=== PATIENT | female | born 1935 | race Caucasian/White ===

== ENCOUNTER 2018-08-17 11:50 | Inpatient (IN) | payer OTHER ==
[~2018-08-17] VITALS: Ht 165.1 cm; Wt 74.8 kg
[2018-08-17 12:04] VITALS: Ht 165.1 cm; Wt 74.8 kg
--- NOTE | 2018-08-17 12:29 | NUR ---
PT C/O SWELLING TO BILAT LEGS. PT HAD LAC TO RT LOWER LEG THAT WAS TREATED AND SUTURED ABOUT 1WK AGO. PT REPORTS RECENTLY HITTING LEFT LOWER LEG AND STS SWELLING WORSENED SINCE THEN. REDNESS NOTED TO LLL. SUTURES NOTED TO RT LOWER LEG. NO S/S OF INFECTION NOTED. PT DENIES DISCHARGE FROM SUTURE SITE. WEAPING PRESENT TO LEFT LEG. SKIN HOT TO TOUCH AND TENDER. ECCHYMOSIS NOTED TO RT EYE WHICH PT STS SHE FELL FRIDAY. STS SHE WAS TRYING TO PLACE TRASH CAN INSIDE GARAGE AND MADE HER LOSE HER BALANCE. PT A/OX4. SPEAKING IN CLEAR FULL SENTENCES. PT SITTING IN UPRIGHT POSITION. DR. ORELLANA AT BEDSIDE FOR MSE. PT DENIES LOC. COMFORT MEASURES IMPLEMENTED. CALL LIGHT W/IN REACH. WILL CTM
--- NOTE | 2018-08-17 13:30 | NUR ---
ULTRASOUND IN PROGRESS
[2018-08-17 13:54] LABS: PLATELET COUNT 288 x10^3mcL (130-400)
[2018-08-17 13:55] LABS: CALCIUM 8.8 mg/dL (8.5-10.1); CARBON DIOXIDE 26.3 mmol/L (21-32); CHLORIDE SERUM 104 mmol/L (98-107); CREATININE SERUM 1.1 mg/dL (0.6-1.0); GLUCOSE SERUM 124 mg/dL (74-106); POTASSIUM SERUM 4.9 mmol/L (3.5-5.1); SODIUM SERUM 138 mmol/L (136-145)
[2018-08-17 13:56] LABS: BASOPHIL % 0 % (0-2)
[2018-08-17 14:00] LABS: AST/SGOT 21 U/L (15-37)
[2018-08-17 14:16] LABS: ALKALINE PHOSPHATASE 62 U/L (46-116); ALT/SGPT 22 U/L (14-59); BILIRUBIN TOTAL 0.5 mg/dL (0.20-1.00); TOTAL PROTEIN, SERUM 7.2 g/dL (6.4-8.2)
[2018-08-17 14:21] LABS: ALBUMIN 3.3 g/dL (3.4-5.0)
--- NOTE | 2018-08-17 14:27 | NUR ---
TO BATHROOM BY WHEELCHAIR ,URINE SPECIEMEN COLLECTED AND SENT TO LAB
[2018-08-17 14:46] LABS: microscopic required? YES; urine erythrocyte NEGATIVE (NEGATIVE)
--- NOTE | 2018-08-17 14:50 | NUR ---
PT RECLINED ON GURSOPHIA IN POSITION OF COMFORT. RESPS E/U. NO S/S OF DISTRESS NOTED.
--- NOTE | 2018-08-17 15:37 | NUR ---
MEDICATED ORDERED. PLEASE SEE EMR.
[2018-08-17] MEDS ORDERED: ALENDRONATE SOD70 M2 (16:06)
[2018-08-17] MEDS ORDERED: LOSARTAN POTASS25 M1 (16:06)
[2018-08-17] MEDS ORDERED: XARELTO STARTER20 MG (16:06)
[2018-08-17] MEDS ORDERED: METHOTREXATE2.5 M2 (16:06)
[2018-08-17] MEDS ORDERED: ATENOLOL25 MG (16:06)
[2018-08-17] MEDS ORDERED: PREDNISONE1 MG (16:07)
--- NOTE | 2018-08-17 16:15 | NUR ---
REPORT GIVEN TO JARETT DICK TO ASSUME CARE OF PT.
[2018-08-17 16:22] LABS: CHOLESTEROL/HDL RATIO 2.5
[2018-08-17 16:54] VITALS: BP 131/34
--- NOTE | 2018-08-17 17:09 | NUR ---
RECEIVED PT FROM ER. PT ADMIT FOR LEFT LEG CELLULITIS, RIGHT LEG DVT. PT IS A/O X4, VERBAL RESPONSIVE, ABLE OT TELL WHAT SHE NEEDS. 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 LUNG SOUND CLEAR BILATERAL, NO COUGH, NO SOB, PT DENY ANY CHEST PAIN OR DISCOMFORT, BOWEL SOUND PRESENT ALL 4 QUADRANTS, NO DISTENTION, NO TENDER. PEDAL PULSE PRESENT AT LEFT LEG WEAK, BUT ABSENT AT RIGHT LEG. +3 RLE, +4 LLE, THERE IS SUTURE AT RLE IN PLACE. LLE ERYTHEMA, RIGHT EYE AND RIGHT SHOULDER ECCHYMOSIS, IV AT LEFT FA, NO LEAKING, NO INFILTRATION. ALL ADLS ASSIST, ALL NEED MET, CALL LIGHT IN REACH, WILL CONTINUE TO MONITOR.
[2018-08-17] MEDS ORDERED: XARELTO10 M1 PO (17:30)
[2018-08-17] MEDS ORDERED: MAGNESIUM OXID400 MG PO (17:31)
[2018-08-17] MEDS ORDERED: CALCIUM 600600 M3 PO (17:32)
[2018-08-17] MEDS ORDERED: LEU5 PO (17:33)
[2018-08-17] MEDS ORDERED: ALENDRONATE SOD70 M2 PO (17:34)
[2018-08-17] MEDS ORDERED: D-20001 TAB PO (17:35)
[2018-08-17] MEDS ORDERED: ATENOLOL25 MG PO (17:36)
[2018-08-17] MEDS ORDERED: COZAAR100 MG PO (17:36)
[2018-08-17] MEDS ORDERED: MILLIPRED5 M1 PO (17:37)
[2018-08-17] MEDS ORDERED: METHOTREXATE2.5 M2 PO ×2 (17:38)
[2018-08-17] MEDS ORDERED: NATURE'S BLEND F1 MG PO (17:39)
[2018-08-17] MEDS ORDERED: LATANOPROST2.5 ML OU (17:40)
--- NOTE | 2018-08-17 17:40 | NUR ---
PT IN BED, WATCHING TV, FAMILY MEMBERS BY BEDSIDE. PT REMAINS A/A/O X 4, CALM, COOPERATIVE. NO ACUTE RESPIRATORY DISTRESS, PAIN, OR DISCOMFORT. BLE ELEVATED. SIDE RAILS UP X 2, BED IN LOW POSITION, CALL LIGHT WITHIN REACH. WILL ENDORSE TO NOC SHIFT.
--- NOTE | 2018-08-17 19:20 | NUR ---
PT RECIEVED FROM THE DAY SHIFT RN. PT IS ALERT AND ORIENTED X4, CALM AND COOPERATIVE WITH CARE AT THIS TIME. NO ACUTE DISTRESS NOTED. SAFETY AND COMFORT MEAUSRES MAINTAINED, BED IN LOWEST POSITION, CALL LIGHT WITHIN REACH, WILL CONTINUE TO MONITOR AT THIS TIME.
--- NOTE | 2018-08-17 19:30 | NUR ---
ENDORSED PT TO JARETT BOB. PT A/A/O X 4, CALM, COOPERATIVE, WATCHING TV AT THIS TIME. NO ACUTE RESPIRATORY DISTRESS, PAIN, OR DISCOMFORT NOTED. SIDE RAILS UP X 2, BED IN LOW POSITION. CALL LIGHT WITHIN REACH.
[2018-08-17 21:44] VITALS: BP 114/50
--- NOTE | 2018-08-18 00:14 | NUR ---
PT IS RESTING IN BED WITH EYES CLOSED AT THIS TIME. NO ACUTE DISTRESS NOTED. SAFETY AND COMFORT MEASURES MAINTAINED, BED IN LOWEST POSITION, CALL LIGHT WITHIN REACH, WILL CONTINUE TO MONITOR AT THIS TIME.
--- NOTE | 2018-08-18 05:11 | NUR ---
PT HAS SLEPT IN LONG INTERVALS THROUGHOUT THE SHIFT. NO ACUTE DISTRESS NOTED. PT HAS BEEN CALM AND COOPERATIVE WITH CARE AT THIS TIME. NO RESP DISTRESS NOTED. PT HAS NO COMPLAINT OF PAIN AT THIS TIME. SAFETY AND COMFORT MEASURES MAINTAINED, BED IN LOWEST POSITION, CALL LIGHT WITHIN REACH. WILL ENDORSE CONTINUITY OF CARE TO THE ONCOMING RN.
[2018-08-18 06:05] VITALS: BP 134/53
[2018-08-18 06:59] LABS: CALCIUM 8.2 mg/dL (8.5-10.1); CARBON DIOXIDE 27.9 mmol/L (21-32); CHLORIDE SERUM 108 mmol/L (98-107); GLUCOSE SERUM 99 mg/dL (74-106); POTASSIUM SERUM 4.5 mmol/L (3.5-5.1); SODIUM SERUM 141 mmol/L (136-145)
[2018-08-18 07:45] LABS: BASOPHIL % 0.3 % (0-2); PLATELET COUNT 232 x10^3mcL (130-400)
--- NOTE | 2018-08-18 08:00 | NUR ---
SHIFT ASSESSMENT DONE. PATIENT A/A/OX4. SPEECH CLEAR. LT FACIAL DROOP NOTED. NO RESP DISTRESS ON RA. DENIED CHEST PAIN. EDEMA 3+ TO RLE, 4+ TO LLE. ERYTHEMA TO LLE, SURGICAL SUTURE TO RLE, CORRECTION OFFICER SUPERVISOR. AMBULATED ON SLOW GAIT. IVF OF NS 10CC/HR. IV SITE TO LFA INTACT. STATED HAD JOINTS PAIN DUE TO RHEUMATOID ARTHRITIS. REFUSED PAIN MEDS NOW. STATAED JOINTS PAIN RELEAVED BY PREDNISONE, REFUSED PAIN MEDS NOW. PT EVAL IN PENDING. CALL LIGHT IN REACH.
[2018-08-18 08:21] LABS: RED CELL DISTRIBUTION WIDTH 17.3 % (11.5-14.5)
[2018-08-18 09:58] VITALS: BP 124/79
--- NOTE | 2018-08-18 12:57 | NUR ---
LASIX 20MG IVP GIVEN PER ORDER. CONTINUE MONITOR.
[2018-08-18 17:59] VITALS: BP 112/55
--- NOTE | 2018-08-18 19:00 | NUR ---
HAD VOID VIA BRP X6. HAD SMALL BM THIS SHIFT. EDEMA TO RLE SUBSIDING. BUT EDEMA TO LLE NO SIGNIFICANT CHANGE. DENIED PAIN. ENDORSED CARE TO NOC NURSE.
--- NOTE | 2018-08-18 19:55 | NUR ---
RECEIVED PT FROM DAY SHIFT RN. PT IS AA&O X4 AND ABLE TO FOLLOW COMMANDS. PT DENIES CHEST PAIN ON ROOM AIR. NO USE OF ACCESSORY MUSCLES OR LABORED BREATHING ON ASSESSMENT. THERE IS A LFA IV THAT IS CLEAN DRY AND INTACT AT THIS TIME. SAFETY MEASURES ARE IN PLACE. CALL LIGHT IS WITHIN REACH. WILL CONTNIUE TO MONITOR.
[2018-08-18 21:02] VITALS: BP 104/49
--- NOTE | 2018-08-19 03:19 | NUR ---
PT RESTING IN BED WITH EYES CLOSED. NO SIGNS OF FACIAL GRIMMACING OR DISTRESS NOTED. WILL CONTINUE TO MONITOR.
[2018-08-19 06:03] VITALS: BP 120/51
--- NOTE | 2018-08-19 06:10 | NUR ---
PT SLEPT THROUGHOUT THE NIGHT. NO SIGNS OF CHEST PAIN OR SHORTNESS OF BREATH. SAFETY MEASURES IN PLACE. CALL LIGHT WITHIN REACH WILL CONTINUE TO MONITOR,
[2018-08-19 06:51] LABS: BASOPHIL % 0.6 % (0-2); PLATELET COUNT 278 x10^3mcL (130-400)
[2018-08-19 06:53] LABS: RED CELL DISTRIBUTION WIDTH 17.1 % (11.5-14.5)
[2018-08-19 07:01] LABS: CALCIUM 8.3 mg/dL (8.5-10.1); CARBON DIOXIDE 27.6 mmol/L (21-32); CHLORIDE SERUM 106 mmol/L (98-107); CREATININE SERUM 1.1 mg/dL (0.6-1.0); GLUCOSE SERUM 96 mg/dL (74-106); POTASSIUM SERUM 4.2 mmol/L (3.5-5.1); SODIUM SERUM 141 mmol/L (136-145)
--- NOTE | 2018-08-19 08:00 | NUR ---
ALERT AND ORIENTED SITTING UP IN CHAIR FOR BREAKFAST. ENCOURAGED PT TO KEEP LEGS ELEVATED WHEN IN BED. NOT TO LEAVE HER LEGS DANGLING DEPENDENTLY. NS INFUSING 10 CC HOUR TO IV LEFT AC. NOTED BLOOD AT IV SITE. INFUSING WELL. PT DOES NOT WANT ANOTHER IV INSERTED IF THIS ONE WILL INFUSE. HAS PAIN TO RT SHOULDER. DECLINED PAIN MED OFFER. SAYS SHE TAKES PRENISONE FOR IT AND IS EFFECTIVE. ROOM NEAR NURSES STATION. RT LOWER LEG HAS SUTURES MARCELINA TO LATERAL ASPECT. SWELLING AND TIGHTNESS TO LEFT LOWER LEG MARCELINA. NO DRAINAGE AT THIS TIME. CALL LIGHT WITHIN REACH.
[2018-08-19 09:11] VITALS: BP 101/37
[2018-08-19 16:03] VITALS: BP 101/37
--- NOTE | 2018-08-19 16:08 | NUR ---
SPOKE WITH DR. WILSON RE: POSS DC. PT WILL NOT BE DC'D TODAY. SHE WILL POSS BE DC'D TOMORROW WITH HOME HEALTH. SPOKE WITH MISHA. PT IS IN PROCESS OF CHANGING INSURANCE AND WILL NOT HAVE INS. IN [place] UNTIL August. MISHA SAID JAYLENE DILLARD IS HELPFUL WITH PT FINDING A PCP.
[2018-08-19 17:17] VITALS: BP 113/51
--- NOTE | 2018-08-19 19:14 | NUR ---
HAS BEEN RESTING QUIETLY THIS SHIFT. CONTINUES ON XARELTO PO FOR RT LOWER LEG DVT AND FORTAZ IV ABX FOR CELLULITIS TO LEFT LOWER LEG. NO PAIN MEDS ADMIN. BRP. VSS. CALL LIGHT WITHIN REACH.
--- NOTE | 2018-08-19 19:52 | NUR ---
PT RECIEVED AAO REG RESP NO SOB V/S STABLE,KEPT CLEAN AND DRY TO TOUCH,IV INFUSING WELL WITH THE SITE PATENT AND INTACT,PT WITH RT LEG SWOLLEN AND RED AND WITH PALPABLE PULSES,LT LEG SWOLLEN AND WITH STITCHES MARCELINA AND WITH PALPABLE,IV INFSING WELL WITH THE SITE PATENT AND INTACT,CALL LIGHT EASY REACHED AND MADE COMFORTABLE IN BED AND WILL CONTINUE TO MONITOR.
[2018-08-19 21:00] VITALS: BP 111/51
--- NOTE | 2018-08-20 01:14 | NUR ---
BERNARD THEN ORDER FOR ZOSYN 2.25 MG IV ORDER AND WILL CONTINUE TO MONITOR.
[2018-08-20 06:19] LABS: BASOPHIL % 0.4 % (0-2); PLATELET COUNT 279 x10^3mcL (130-400)
[2018-08-20 06:20] VITALS: BP 131/61
--- NOTE | 2018-08-20 06:25 | NUR ---
PT HAD A RESTING NIGHT NO CHANGE AT THIS TIME,PT SITTING ON THE CHAIR RESTING AT THIS TIME,KEPT CLEAN AND DRY TO TOUCH AND WILL CONTINUE TO MONITOR.
[2018-08-20 06:36] LABS: CHLORIDE SERUM 107 mmol/L (98-107); GLUCOSE SERUM 93 mg/dL (74-106); POTASSIUM SERUM 4.1 mmol/L (3.5-5.1); SODIUM SERUM 140 mmol/L (136-145)
[2018-08-20 06:52] LABS: RED CELL DISTRIBUTION WIDTH 16.5 % (11.5-14.5)
--- NOTE | 2018-08-20 08:00 | NUR ---
ALERT AND ORIENTED. BREATHING FREELY ON RA. C/O LEFT WRIST AND RIGHT SHOULDER PAIN. REFUSED ANY PAIN MEDS. LEFT LOWER LEG REMAINS SWOLLEN WITH BROWNISH DISCOLORATION. RT LOWER LEG LATERAL ASPECT WITH PURPLE DISCOLORATION UNDER SUTURED AREA. NO DRAINAGE. MARCELINA. PURPLE DISCOLORATION TO RT SHOULDER. PURPLE DISCOLORATION TO RT ORBIT. [place]. INDEPENDENT WITH ADL'S. CALL LIGHT WITHIN REACH.
[2018-08-20 08:45] VITALS: BP 99/48
[2018-08-20 14:00] VITALS: BP 99/48
[2018-08-20] MEDS ORDERED: KEFLEX500 M1 PO (14:30)
[2018-08-20] MEDS ORDERED: LASIX20 MG PO (14:32)
--- NOTE | 2018-08-20 18:25 | NUR ---
DC'D BACK TO [facility]. IV DC'D. PRESCRIPTIONS GIVEN. ALL DC INSTRUCTIONS REVIEWED WITH AND SIGNED BY PT.
== END 2018-08-20 18:25 | disposition home or self-care (01) | DRG 300 ==
LOC: ED 11:50 → MU 15:27
PROVIDERS: Emergency Medicine; General Practice; ADMIT Family Medicine
DX: I82.4Z1 Acute embolism and thrombosis of unspecified deep veins of right distal lower extremity (principal); L03.116 Cellulitis of left lower limb; S80.12XA Contusion of left lower leg, initial encounter; M06.9 Rheumatoid arthritis, unspecified; I89.0 Lymphedema, not elsewhere classified; I10 Essential (primary) hypertension; M81.0 Age-related osteoporosis without current pathological fracture; Z96.652 Presence of left artificial knee joint; W18.39XA Other fall on same level, initial encounter; Z68.28 Body mass index [BMI] 28.0-28.9, adult; Z79.01 Long term (current) use of anticoagulants; Y93.89 Activity, other specified; Y92.015 Private garage of single-family (private) house as the place of occurrence of the external cause
CPT/HCPCS: 83880; J0690; J0713; J1940; J7060; J7512; Q0092

== ENCOUNTER 2020-04-20 05:30 | Emergency (ER) | payer OTHER ==
[~2020-04-20] VITALS: Ht 165.1 cm; Wt 71.2 kg
[~2020-04-20 05:30] MED LIST: ALENDRONATE SOD70 M2; ALENDRONATE SOD70 M2 PO; ATENOLOL25 MG; ATENOLOL25 MG PO; CALCIUM 600600 M3 PO; COZAAR100 MG PO; D-20001 TAB PO; KEFLEX500 M1 PO; LASIX20 MG PO; LATANOPROST2.5 ML OU; LEU5 PO; LOSARTAN POTASS25 M1; MAGNESIUM OXID400 MG PO; METHOTREXATE2.5 M2; METHOTREXATE2.5 M2 PO; MILLIPRED5 M1 PO; NATURE'S BLEND F1 MG PO; PREDNISONE1 MG; XARELTO STARTER20 MG; XARELTO10 M1 PO
[2020-04-20 05:38] VITALS: BP 123/69; Ht 165.1 cm; Wt 71.2 kg
[2020-04-20 07:53] LABS: PLATELET COUNT 228 x10^3mcL (179-408)
[2020-04-20 07:59] LABS: RED CELL DISTRIBUTION WIDTH 15.3 % (12.3-17.7)
[2020-04-20 08:07] LABS: CALCIUM 8.8 mg/dL (8.5-10.1); CARBON DIOXIDE 27.9 mmol/L (21-32); CHLORIDE SERUM 105 mmol/L (98-107); CREATININE SERUM 1.2 mg/dL (0.6-1.0); GLUCOSE SERUM 97 mg/dL (74-106); POTASSIUM SERUM 3.4 mmol/L (3.5-5.1); SODIUM SERUM 141 mmol/L (136-145)
[2020-04-20 08:11] LABS: ALKALINE PHOSPHATASE 76 U/L (46-116); ALT/SGPT 20 U/L (14-59); AST/SGOT 20 U/L (15-37); BILIRUBIN TOTAL 0.35 mg/dL (0.20-1.00); LIPASE 124 IU/L (73-393)
[2020-04-20 08:12] LABS: ALBUMIN 3.1 g/dL (3.4-5.0)
== END 2020-04-20 08:54 | disposition home or self-care (01) ==
LOC: ED 05:30
PROVIDERS: Emergency Medicine
DX: M54.5 Low back pain (principal); I10 Essential (primary) hypertension; M81.0 Age-related osteoporosis without current pathological fracture; Z90.710 Acquired absence of both cervix and uterus; Z88.8 Allergy status to other drugs, medicaments and biological substances